=== PATIENT | male | born 1930 | race Caucasian/White ===

== ENCOUNTER → 2016-04-11 | Outpatient (CLI) | payer MEDICARE, BC ==
[~2016-04-11] MED LIST: ALBUTEROL0.09 MG/A4 IH; ATIVAN 0.50.5 MG/TAB PO; CIPRO 250MG TA250 MG PO; COLCHICINE0.6 M1 PO; COUMADIN 22.5 MG/TAB PO; COUMADIN 5MG5 MG/TAB PO; COUMADIN PO; COUMADIN1 MG PO; ENOXAPARIN40 MG/0.1 SQ; FISH OIL 1000MG1 CAP PO; FLONASE ALLERG9.9 ML NS; HCTZ/LISINOPRIL1 TA2 PO; LABETALOL HYDR200 MG PO; LASIX20 M1 PO; LEXAPRO 10MG10 MG PO; LISINOPRIL20 MG PO; LORAZEPAM0.5 M1 PO; LOSARTAN POTAS100 MG PO; LOSARTAN POTASS50 MG PO; MULTIPLE VITAMI1 TAB PO; NORCO 325 MG-51 TA1 PO; POTASSIUM CHLO20 ME4 PO; PREDNISONE10 MG PO; Patient's Own Medica PO; SODIUM BICARB PO; TRANDATE 200MG200 MG PO; TYLENOL 500MG500 MG PO; ULTRAM 50MG TAB50 MG PO; VESICARE10 MG PO; ZYLOPRIM 100MG100 MG PO
== END ==
LOC: LAB 16:54
DX: I82.813 Embolism and thrombosis of superficial veins of lower extremities, bilateral (principal); N18.2 Chronic kidney disease, stage 2 (mild); M79.601 Pain in right arm

== ENCOUNTER 2016-04-13 16:55 | Observation (INO) | payer MEDICARE, BC ==
--- NOTE | 2016-04-13 16:50 | NUR ---
PT SENT OVER FROM CLINIC AT THIS TIME A DIRECT ADMIT WITH A DIAGNOSIS OF CELLULITIS IN THE RIGHT ARM AND SEVERE PAIN AT THIS SITE, PATIENT ARRIVES VIA WHEELCHAIR, BREATHING STABLE ON ROOM AIR, RIGHT ARM IS IN SLING, C/O SEVERE PAIN IN THE RIGHT ARM FROM THE ELBOW DOWN, NOTED EXTREME EDEMA AND REDNESS IN RIGHT HAND, EDEMA EXTENDS UP THE ARM, PAIN STARTS AT THE LEVEL OF THE ELBOW AND RADIATES DOWN THE HAND, PT ALSO COMPLAINS OF PAIN IN RIGHT LOWER BACK THAT HE STATES HE HAS BEEN DEALING WITH AT HOME, COMPLEX ASSESSMENT COMPLETED, CHRONIC COLOSTOMY AND UROSTOMY PRESENT, STOMAS PINK AND MOIST, URINE IS YELLOW AND CLEAR, NO BM AT THIS TIME, REPORTS LAST BM WAS THIS MORNING, HE REPORTS HIS SUPPLIES AT HOME IS RUNNING THIN FOR HIS OSTOMIES SO HE IS GOING TO USE OUR SUPPLIES HERE DURING HIS STAY, HE CURRENTLY LIVES AT HOME ALONE WITH THE CARES OF [facility] AND FAMILY SUPPORT, IV STARTED AT THIS TIME IN LEFT UPPER ARM FOR IV ANTIBIOTICS AND PAIN CONTROL, PENDING ORDERS AT THIS TIME, LIOR BARROW APRN STATES PATIENT IS GOING TO BE ON A REGULAR DIET, KITCHEN NOTIFIED AND BRING PATIENT A SUPPER TRAY, NO FAMILY PRESENT AT THIS TIME, VSS, WILL CONTINUE ASSESSMENT AND MONITOR PATIENTS HEALTH STATUS
[~2016-04-13 16:55] MED LIST changes: -COUMADIN 22.5 MG/TAB PO; -COUMADIN 5MG5 MG/TAB PO; -COUMADIN PO; -ENOXAPARIN40 MG/0.1 SQ; -LABETALOL HYDR200 MG PO; -LORAZEPAM0.5 M1 PO; -LOSARTAN POTAS100 MG PO; -LOSARTAN POTASS50 MG PO; -NORCO 325 MG-51 TA1 PO; -POTASSIUM CHLO20 ME4 PO; -PREDNISONE10 MG PO; -Patient's Own Medica PO; -SODIUM BICARB PO; -TRANDATE 200MG200 MG PO; -ZYLOPRIM 100MG100 MG PO
[2016-04-13 17:12] VITALS: BP 169/77
[2016-04-13 17:42] VITALS: BP 169/77
[2016-04-13 18:08] VITALS: BP 169/77
[2016-04-13 18:30] VITALS: BP 169/77
--- NOTE | 2016-04-13 19:05 | NUR ---
PT REPORTS AT THIS TIME HE IS ABLE TO KNOW WHEN HE NEEDS HIS OSTOMIES TENDED TO, WELL HOW TO MANEUVER ALL OF THE SUPPLIES, ENCOURAGED TO RING CALL LIGHT AND ASK FOR STAFF ASSISTANCE WHILE HIS ARM IS STILL SO SORE, DENIES THE NEED FOR THESE CARES AT THIS TIME, ALSO REPORTS AT THIS TIME THAT AT HOME HE IS AMBULATING WITH A WALKER, HE ARRIVES WITH A CANE AND MENTIONS HE USES "BOTH" BUT DOES BETTER WITH THE WALKER, SBA UPON ASSESSMENT, STRONG GAIT WITH INTERMITTENT UNSTEADINESS, MOVES SLOW BUT EFFICIENTLY
--- NOTE | 2016-04-13 19:27 | NUR ---
PT RESTING IN BED, CALM AND STATES PAIN IS MUCH BETTER, REPORTS PAIN LEVEL HAS COME DOWN FROM 8/10 TO 5/10, HE IS MOVING HIS FINGERS WHICH HE SAYS IS AN IMPROVEMENT, BACK PAIN IS MUCH BETTER WELL, DENIES NEEDS, CALL LIGHT WITHIN REACH, ENCOURAGED TO RING CALL LIGHT FOR ANY ASSISTANCE NEEDED, NO ACUTE CHANGES OR NEW NEEDS AT THIS TIME
--- NOTE | 2016-04-13 20:32 | NUR ---
PT REPORTS AT THIS TIME THAT HE CHANGES HIS OSTOMY BAGS EVERY 3 DAYS WELL THE WAFERS, HE STATES TOMORROW IS THE DAY THAT THEY NEED CHANGED, DOES NOT WANT THEM CHANGED AT THIS TIME, BOTH SITES DRAINING APPROPRIATELY, NO REDNESS OR INAPPROPRIATE SKIN BREAKDOWN, NO IMMEDIATE CONCERNS NOTED
--- NOTE | 2016-04-13 20:35 | NUR ---
Report received from Carmen Rajan RN
--- NOTE | 2016-04-13 21:30 | NUR ---
Pt has been resting in bed, awake and a/o x 3. Denies pain. Right arm in sling for comfort. Right hand continues to be swollen. Cap refill less than 3 seconds. Radial pulse strong and regular. Skin chris. Int patent, flushes easily with normal saline. Denies pain when Int flushed.
[2016-04-13 23:16] VITALS: BP 121/52
--- NOTE | 2016-04-13 23:29 | NUR ---
Resting in bed with eyes closed, even respirations. Opens eyes when spoken too. Urostomy bag emptied. Urostomy bag and colostomy bag secured.
--- NOTE | 2016-04-14 01:17 | NUR ---
Resting in bed, eyes closed. Even none labored respirations.
[2016-04-14 03:01] VITALS: BP 143/56
--- NOTE | 2016-04-14 05:30 | NUR ---
Has been resting in bed, eyes closed, even none labored respirations. Right forearm in sling, for comfort measures. Cap refill less than 3 seconds. Skin warm. Right hand continues to be swollen. Radial pule strong. Denies pain.
[2016-04-14 06:23] VITALS: BP 129/49
--- NOTE | 2016-04-14 06:35 | NUR ---
Dr Rudd called in lab order.
--- NOTE | 2016-04-14 07:10 | NUR ---
Report given to Deepika Valentino RN
[2016-04-14] MEDS ORDERED: COUMADIN PO (07:18)
--- NOTE | 2016-04-14 07:20 | NUR ---
REPORT RECEIVED FROM PRESLEY BRANCH
--- NOTE | 2016-04-14 07:45 | NUR ---
PATIENT LYING IN BED WITH HEAD OF BED ELEVATED. SHIFT ASSESSMENT COMPLETE. PATIENT ALERT AND ORIENTED X4. DENIES ANY PAIN AT THIS TIME. PATIENT'S RIGHT HAND IN SLING. PATIENT HAS REDNESS TO RIGHT UPPER EXT. REDNESS FROM 2ND TO 5TH FINGER EXTENDS TO MIDDLE KNUCKLE. REDNESS TO 2ND FINGER THAN OTHER REDDENED. TOP OF HAND SLIGHTLY REDDENED BUT NOT RED FINGERS. SKIN TO APPROXIMATELY 2/[address] UP ARM PINK. RED AREA WARM TO TOUCH. FINGERS SWOLLEN. HAS +2 EDEMA TO RIGHT FOREARM TO ELBOW. PATIENT ABLE TO WIGGLE FINGERS IN RIGHT HAND BUT HAS LIMITED MOVEMENT DUE TO SWELLING AND PAIN, UNABLE TO FORM ROVING MARKER.PATIENT REPORTS PAIN ALL STARTED IN RIGHT ELBOW. RIGHT ELBOW SWOLLEN. HAS PINKENED AREA TO ELBOW. REPORTS THAT HE ALWAYS HAS DIFFICULTIES BREATHING WITH EXERTION. DENIES ANY CHANGE TO BREATHING RECENTLY. COLOSTOMY BAG AND UROSTOMY BAG INTACT. PATIENT'S CALL LIGHT WITHIN REACH. BED ALARM ON.
--- NOTE | 2016-04-14 08:10 | NUR ---
IN TO SEE PATIENT. THIS NURSE IN ROOM.
[2016-04-14 11:14] VITALS: BP 119/53
--- NOTE | 2016-04-14 11:45 | NUR ---
PATIENT'S SLING TO RIGHT UPPER ARM WAS REMOVED. PATIENT HAS HAD RIGHT ARM ELEVATED ON PILLOWS. SWELLING TO RIGHT FOREARM/ELBOW DOES NOT APPEAR TO BE SWOLLEN THIS MORNING. REDNESS TO RIGHT UPPER EXT OUTINED WITH MARKER. REDNESS APPEARS TO UNCHANGED FROM PREVIOUS.
[2016-04-14 15:02] VITALS: BP 146/55
--- NOTE | 2016-04-14 15:29 | NUR ---
Pt's charge nurse is concerned for pt not moving around. Dr De La Fuente is notified and new orders given for PT/OT evals. Both Herlinda Saldana OT and Marifer Castellanos PT are notified per this nurse of new orders.
--- NOTE | 2016-04-14 16:50 | NUR ---
PATIENT'S RIGHT ARM ELEVATED ON PILLOWS. PATIENT REQUESTED PRN MORPHINE 4 MG FOR PAIN IN HAND WITH MOVEMENT. REDNESS IN RIGHT FINGERS SLIGHTLY LESS RED THAN THIS MORNING BUT CONTINUES TO BE WARM TO TOUCH. MEASUREMENT FOR AREA JUST BELOW ELBOW 29 CM.
[2016-04-14 16:59] VITALS: BP 156/60
--- NOTE | 2016-04-14 17:40 | NUR ---
PATIENT SWITCHED FROM OBSERVATION TO ACUTE AT THIS TIME.
[2016-04-14 18:00] VITALS: BP 149/66
== END 2016-04-14 17:40 | disposition other institution (70) ==
LOC: MED/SURG 16:55
PROVIDERS: ADMIT Family Medicine
DX: L03.113 Cellulitis of right upper limb (principal); N18.2 Chronic kidney disease, stage 2 (mild); M1A.9XX1 Chronic gout, unspecified, with tophus (tophi); Z86.718 Personal history of other venous thrombosis and embolism; Z79.01 Long term (current) use of anticoagulants; I10 Essential (primary) hypertension; F41.9 Anxiety disorder, unspecified; F32.9 Major depressive disorder, single episode, unspecified; Z51.81 Encounter for therapeutic drug level monitoring; Z93.3 Colostomy status; Z85.51 Personal history of malignant neoplasm of bladder; Z85.46 Personal history of malignant neoplasm of prostate; Z85.118 Personal history of other malignant neoplasm of bronchus and lung; Z85.038 Personal history of other malignant neoplasm of large intestine
CPT/HCPCS: G0378; G0379; J0690; J2270; J3490; J7512

== ENCOUNTER 2016-04-14 17:40 | Inpatient (IN) | payer MEDICARE, BC ==
[~2016-04-14 17:40] MED LIST changes: +COUMADIN PO
[2016-04-14 18:35] VITALS: BP 149/66
[2016-04-14 23:00] VITALS: BP 135/66
[2016-04-15] VITALS (7 sets, daily range): BP systolic 121–159; BP diastolic 43–73
[2016-04-16 03:11] VITALS: BP 130/62
[2016-04-16 06:27] VITALS: BP 153/67
[2016-04-16 11:20] VITALS: BP 147/67
[2016-04-16 15:11] VITALS: BP 169/67
[2016-04-16 18:23] VITALS: BP 177/73
[2016-04-16 23:16] VITALS: BP 154/70
[2016-04-17 02:54] VITALS: BP 160/62
[2016-04-17 06:25] VITALS: BP 158/66
[2016-04-17 11:27] VITALS: BP 151/94
[2016-04-17 15:03] VITALS: BP 165/78
[2016-04-17 18:00] VITALS: BP 173/74
[2016-04-17 22:56] VITALS: BP 165/69
[2016-04-18 02:57] VITALS: BP 152/73
[2016-04-18 06:23] VITALS: BP 158/70
[2016-04-18 12:25] VITALS: BP 144/65
[2016-04-18] MEDS ORDERED: LOSARTAN POTASS50 MG PO (13:06)
[2016-04-18] MEDS ORDERED: TRANDATE 200MG200 MG PO (13:06)
[2016-04-18] MEDS ORDERED: SODIUM BICARB PO (13:07)
[2016-04-18] MEDS ORDERED: PREDNISONE10 MG PO (13:09)
[2016-04-18] MEDS ORDERED: ZYLOPRIM 100MG100 MG PO (13:09)
[2016-04-18] MEDS ORDERED: Patient's Own Medica PO (13:10)
== END 2016-04-18 12:59 | disposition swing bed (61) | DRG 554 ==
LOC: MED/SURG 17:40
PROVIDERS: ADMIT Family Medicine
DX: M10.9 Gout, unspecified (principal); K56.7 Ileus, unspecified; E87.2 Acidosis; M18.9 Osteoarthritis of first carpometacarpal joint, unspecified; I12.9 Hypertensive chronic kidney disease with stage 1 through stage 4 chronic kidney disease, or unspecified chronic kidney disease; N18.2 Chronic kidney disease, stage 2 (mild); R79.1 Abnormal coagulation profile; K59.00 Constipation, unspecified; F41.9 Anxiety disorder, unspecified; D64.9 Anemia, unspecified; Z93.3 Colostomy status; Z93.6 Other artificial openings of urinary tract status; Z96.0 Presence of urogenital implants; Z85.51 Personal history of malignant neoplasm of bladder; Z86.718 Personal history of other venous thrombosis and embolism; Z85.46 Personal history of malignant neoplasm of prostate; Z85.118 Personal history of other malignant neoplasm of bronchus and lung; Z85.038 Personal history of other malignant neoplasm of large intestine
CPT/HCPCS: A4397; J0690; J2550; J2920; J3490; J7030; J7512

== ENCOUNTER 2016-04-18 12:59 | Inpatient (IN) | payer MEDICARE, BC ==
[2016-04-18] MEDS ORDERED: TRANDATE 200MG200 MG PO (13:06)
[2016-04-18] MEDS ORDERED: LOSARTAN POTASS50 MG PO (13:06)
[2016-04-18] MEDS ORDERED: SODIUM BICARB PO (13:07)
[2016-04-18] MEDS ORDERED: PREDNISONE10 MG PO (13:09)
[2016-04-18] MEDS ORDERED: ZYLOPRIM 100MG100 MG PO (13:09)
[2016-04-18] MEDS ORDERED: Patient's Own Medica PO (13:10)
[2016-04-18 15:47] VITALS: BP 176/79
[2016-04-18 18:50] VITALS: BP 174/72
[2016-04-19 06:30] VITALS: BP 142/66
[2016-04-19 18:50] VITALS: BP 164/63
[2016-04-20 06:27] VITALS: BP 176/74
[2016-04-20 18:45] VITALS: BP 157/63
[2016-04-21 06:21] VITALS: BP 162/71
[2016-04-21 18:14] VITALS: BP 165/69
[2016-04-22 06:22] VITALS: BP 119/69
[2016-04-22 18:28] VITALS: BP 147/58
[2016-04-23 06:22] VITALS: BP 133/58
[2016-04-23 18:31] VITALS: BP 155/64
[2016-04-24 06:22] VITALS: BP 154/71
[2016-04-24 18:23] VITALS: BP 149/57
[2016-04-25 06:23] VITALS: BP 150/71
[2016-04-25 18:00] VITALS: BP 138/63
[2016-04-26 06:23] VITALS: BP 148/58
[2016-04-26] MEDS ORDERED: POTASSIUM CHLO20 ME4 PO (08:49)
[2016-04-26] MEDS ORDERED: LOSARTAN POTAS100 MG PO (08:49)
[2016-04-26] MEDS ORDERED: SODIUM BICARB PO (08:49)
[2016-04-26] MEDS ORDERED: PREDNISONE10 MG PO (08:49)
[2016-04-26] MEDS ORDERED: ENOXAPARIN40 MG/0.1 SQ (08:49)
[2016-04-26] MEDS ORDERED: LORAZEPAM0.5 M1 PO (08:49)
[2016-04-26] MEDS ORDERED: COUMADIN PO (08:56)
== END 2016-04-26 10:57 | disposition home health service (06) | DRG 554 ==
LOC: MED/SURG 12:59
PROVIDERS: ADMIT Family Medicine
DX: M10.9 Gout, unspecified (principal); E87.2 Acidosis; K56.7 Ileus, unspecified; I10 Essential (primary) hypertension; R79.1 Abnormal coagulation profile; E87.6 Hypokalemia; R53.81 Other malaise; E87.8 Other disorders of electrolyte and fluid balance, not elsewhere classified; F41.9 Anxiety disorder, unspecified; Z93.3 Colostomy status; Z93.6 Other artificial openings of urinary tract status; Z79.01 Long term (current) use of anticoagulants; Z86.718 Personal history of other venous thrombosis and embolism
CPT/HCPCS: A4397; A4425; J1650; J3430; J3480; J7512

== ENCOUNTER → 2016-04-28 | Outpatient (CLI) | payer MEDICARE, BC ==
[~2016-04-28] MED LIST changes: +COUMADIN 22.5 MG/TAB PO; +COUMADIN 5MG5 MG/TAB PO; +ENOXAPARIN40 MG/0.1 SQ; +LABETALOL HYDR200 MG PO; +LORAZEPAM0.5 M1 PO; +LOSARTAN POTAS100 MG PO; +LOSARTAN POTASS50 MG PO; +NORCO 325 MG-51 TA1 PO; +POTASSIUM CHLO20 ME4 PO; +PREDNISONE10 MG PO; +Patient's Own Medica PO; +SODIUM BICARB PO; +TRANDATE 200MG200 MG PO; +ZYLOPRIM 100MG100 MG PO
== END ==
LOC: LAB 11:30
DX: E87.2 Acidosis (principal); I82.813 Embolism and thrombosis of superficial veins of lower extremities, bilateral

== ENCOUNTER → 2016-05-02 | Outpatient (CLI) | payer MEDICARE, BC | LOC: LAB 13:03 | DX: I82.813 Embolism and thrombosis of superficial veins of lower extremities, bilateral (principal) ==

== ENCOUNTER → 2016-05-09 | Outpatient (CLI) | payer MEDICARE, BC | LOC: LAB 10:26 | DX: N18.3 Chronic kidney disease, stage 3 (moderate) (principal); I82.813 Embolism and thrombosis of superficial veins of lower extremities, bilateral ==

== ENCOUNTER → 2016-05-11 | Outpatient (CLI) | payer MEDICARE, BC | LOC: LAB 09:42 | DX: Z51.81 Encounter for therapeutic drug level monitoring (principal); Z79.01 Long term (current) use of anticoagulants; I82.813 Embolism and thrombosis of superficial veins of lower extremities, bilateral ==

== ENCOUNTER → 2016-05-13 | Outpatient (CLI) | payer MEDICARE, BC | LOC: LAB 11:47 | DX: M1A.0411 Idiopathic chronic gout, right hand, with tophus (tophi) (principal); M10.341 Gout due to renal impairment, right hand ==

== ENCOUNTER → 2016-05-16 | Outpatient (CLI) | payer MEDICARE, BC | LOC: RAD 13:06 | DX: M25.561 Pain in right knee (principal); R60.0 Localized edema; I10 Essential (primary) hypertension; E87.2 Acidosis; I82.813 Embolism and thrombosis of superficial veins of lower extremities, bilateral; S83.241A Other tear of medial meniscus, current injury, right knee, initial encounter; X58.XXXA Exposure to other specified factors, initial encounter ==

== ENCOUNTER → 2016-05-19 | Outpatient (CLI) | payer MEDICARE, BC | LOC: LAB 09:57 | DX: Z51.81 Encounter for therapeutic drug level monitoring (principal); Z79.01 Long term (current) use of anticoagulants; I82.813 Embolism and thrombosis of superficial veins of lower extremities, bilateral ==

== ENCOUNTER 2016-06-15 15:09 | Inpatient (IN) | payer MEDICARE, BC ==
[~2016-06-15 15:09] MED LIST changes: -COUMADIN 22.5 MG/TAB PO; -COUMADIN 5MG5 MG/TAB PO; -LABETALOL HYDR200 MG PO; -NORCO 325 MG-51 TA1 PO
[2016-06-15 15:38] VITALS: BP 135/59
[2016-06-15 15:40] VITALS: BP 135/59
[2016-06-15] MEDS ORDERED: NORCO 325 MG-51 TA1 PO (15:42)
[2016-06-15 18:12] VITALS: BP 144/59
[2016-06-15 18:13] VITALS: BP 119/57; BP 128/61
[2016-06-15 18:14] VITALS: BP 144/59
[2016-06-15 23:11] VITALS: BP 116/57
[2016-06-16] VITALS (7 sets, daily range): BP systolic 85–130; BP diastolic 35–61
[2016-06-17 03:19] VITALS: BP 122/55
[2016-06-17 06:23] VITALS: BP 110/51
[2016-06-17 11:09] VITALS: BP 114/48
[2016-06-17 14:54] VITALS: BP 156/71
[2016-06-17] MEDS ORDERED: COUMADIN 5MG5 MG/TAB PO (18:06)
[2016-06-17] MEDS ORDERED: COUMADIN 22.5 MG/TAB PO (18:06)
[2016-06-17] MEDS ORDERED: ENOXAPARIN40 MG/0.1 SQ (18:07)
[2016-06-17] MEDS ORDERED: SODIUM BICARB PO (18:08)
[2016-06-17] MEDS ORDERED: PREDNISONE10 MG PO (18:09)
[2016-06-17 18:18] VITALS: BP 108/46
[2016-06-17 23:00] VITALS: BP 100/42
[2016-06-18 02:55] VITALS: BP 112/52
[2016-06-18 06:38] VITALS: BP 91/47
[2016-06-18 11:25] VITALS: BP 129/55
[2016-06-18 15:07] VITALS: BP 125/59
== END 2016-06-18 16:30 | disposition swing bed (61) | DRG 683 ==
LOC: MED/SURG 15:09
PROVIDERS: ADMIT Family Medicine
DX: N17.9 Acute kidney failure, unspecified (principal); E87.2 Acidosis; D68.32 Hemorrhagic disorder due to extrinsic circulating anticoagulants; E86.0 Dehydration; M11.262 Other chondrocalcinosis, left knee; M11.261 Other chondrocalcinosis, right knee; R19.5 Other fecal abnormalities; D64.9 Anemia, unspecified; E87.6 Hypokalemia; R19.7 Diarrhea, unspecified; F41.9 Anxiety disorder, unspecified; F32.9 Major depressive disorder, single episode, unspecified; I12.9 Hypertensive chronic kidney disease with stage 1 through stage 4 chronic kidney disease, or unspecified chronic kidney disease; N18.3 Chronic kidney disease, stage 3 (moderate); T45.515A Adverse effect of anticoagulants, initial encounter; Z93.3 Colostomy status; Z79.01 Long term (current) use of anticoagulants; Z86.718 Personal history of other venous thrombosis and embolism; Z85.038 Personal history of other malignant neoplasm of large intestine; Z85.51 Personal history of malignant neoplasm of bladder
CPT/HCPCS: A4409; J0881; J1650; J7030; J7070; J7512

== ENCOUNTER → 2016-06-15 | Outpatient (CLI) | payer MEDICARE, BC ==
--- NOTE | 2016-06-15 13:39 | NUR ---
Dr. De La Fuente at patients bedside, he is aware of lab and EKG results, discussed plan to transfer
[2016-06-15 13:59] VITALS: BP 107/50
--- NOTE | 2016-06-15 14:01 | NUR ---
to x-ray per w/c
--- NOTE | 2016-06-15 15:08 | NUR ---
Dr. Hardy calls and states [facility] has no available beds, so for this time the patient will remain at [facility] for Acute inpatient stay. Admissions is notified
== END ==
LOC: AMSURD 12:03
DX: I73.9 Peripheral vascular disease, unspecified (principal)
CPT/HCPCS: J3430; J7030

== ENCOUNTER 2016-06-18 16:30 | Inpatient (IN) | payer MEDICARE, BC ==
[~2016-06-18 16:30] MED LIST changes: +COUMADIN 22.5 MG/TAB PO; +COUMADIN 5MG5 MG/TAB PO; +NORCO 325 MG-51 TA1 PO
[2016-06-18 16:49] VITALS: BP 125/59
[2016-06-18 18:13] VITALS: BP 129/56
[2016-06-18 19:04] VITALS: BP 129/56
[2016-06-19 06:31] VITALS: BP 116/48
[2016-06-19 18:32] VITALS: BP 144/69
[2016-06-20 06:22] VITALS: BP 128/57
[2016-06-20 18:13] VITALS: BP 159/81
[2016-06-21 06:21] VITALS: BP 125/50
[2016-06-21 18:26] VITALS: BP 160/92
[2016-06-22 06:32] VITALS: BP 125/56
[2016-06-22 17:57] VITALS: BP 161/82
[2016-06-23 06:24] VITALS: BP 121/52
[2016-06-23] MEDS ORDERED: LABETALOL HYDR200 MG PO (07:02)
[2016-06-23] MEDS ORDERED: SODIUM BICARB PO (07:02)
[2016-06-23] MEDS ORDERED: PREDNISONE10 MG PO (07:08)
== END 2016-06-23 11:08 | disposition home health service (06) | DRG 554 ==
LOC: MED/SURG 16:30
PROVIDERS: ADMIT Family Medicine
DX: M11.262 Other chondrocalcinosis, left knee (principal); M11.261 Other chondrocalcinosis, right knee; E87.2 Acidosis; E87.6 Hypokalemia; D64.9 Anemia, unspecified; I12.9 Hypertensive chronic kidney disease with stage 1 through stage 4 chronic kidney disease, or unspecified chronic kidney disease; N18.3 Chronic kidney disease, stage 3 (moderate); F41.9 Anxiety disorder, unspecified; I73.9 Peripheral vascular disease, unspecified; M51.36 Other intervertebral disc degeneration, lumbar region; J45.909 Unspecified asthma, uncomplicated; Z79.01 Long term (current) use of anticoagulants; Z93.3 Colostomy status; Z93.6 Other artificial openings of urinary tract status; Z86.718 Personal history of other venous thrombosis and embolism; Z85.51 Personal history of malignant neoplasm of bladder; Z85.038 Personal history of other malignant neoplasm of large intestine
CPT/HCPCS: A4425; J1650; J7512

== ENCOUNTER → 2016-06-24 | Outpatient (CLI) | payer MEDICARE, BC ==
[~2016-06-24] MED LIST changes: +LABETALOL HYDR200 MG PO
== END ==
LOC: LAB 12:07
DX: R42 Dizziness and giddiness (principal); Z86.718 Personal history of other venous thrombosis and embolism

== ENCOUNTER → 2016-06-27 | Outpatient (CLI) | payer MEDICARE, BC | LOC: LAB 09:35 | DX: I82.813 Embolism and thrombosis of superficial veins of lower extremities, bilateral (principal); D63.1 Anemia in chronic kidney disease; I48.91 Unspecified atrial fibrillation ==

== ENCOUNTER → 2016-06-29 | Outpatient (CLI) | payer MEDICARE, BC | LOC: LAB 09:24 | DX: Z51.81 Encounter for therapeutic drug level monitoring (principal); Z79.01 Long term (current) use of anticoagulants; I82.813 Embolism and thrombosis of superficial veins of lower extremities, bilateral; R42 Dizziness and giddiness; N18.2 Chronic kidney disease, stage 2 (mild); E87.2 Acidosis; Z85.51 Personal history of malignant neoplasm of bladder ==

== ENCOUNTER → 2016-07-05 | Outpatient (CLI) | payer MEDICARE, BC ==
[2016-06-23 06:24] VITALS: BP 121/52
== END ==
LOC: LAB 10:36
DX: N18.3 Chronic kidney disease, stage 3 (moderate) (principal); D63.1 Anemia in chronic kidney disease

== ENCOUNTER 2016-07-08 08:15 | Outpatient (RCR) | payer MEDICARE, BC | END 2016-07-22 15:25 | LOC: OPPGERO 08:15 | DX: F32.1 Major depressive disorder, single episode, moderate (principal); F41.1 Generalized anxiety disorder ==

== ENCOUNTER → 2016-07-18 | Outpatient (CLI) | payer MEDICARE, BC ==
[2016-06-23 06:24] VITALS: BP 121/52
== END ==
LOC: LAB 14:05
DX: E87.2 Acidosis (principal)

== ENCOUNTER 2016-07-25 08:06 | Outpatient (RCR) | payer MEDICARE, BC | END 2016-08-24 16:45 | LOC: OPPGERO 08:06 | DX: F32.1 Major depressive disorder, single episode, moderate (principal); F41.1 Generalized anxiety disorder ==

== ENCOUNTER → 2016-08-09 | Outpatient (CLI) | payer MEDICARE, BC | LOC: LAB 15:02 | DX: D63.1 Anemia in chronic kidney disease (principal); N18.3 Chronic kidney disease, stage 3 (moderate) ==

== ENCOUNTER 2016-08-25 10:59 | Outpatient (RCR) | payer MEDICARE, BC | END 2016-09-23 15:47 | LOC: OPPGERO 10:59 | DX: F32.1 Major depressive disorder, single episode, moderate (principal); F41.1 Generalized anxiety disorder ==

== ENCOUNTER → 2016-08-31 | Outpatient (CLI) | payer MEDICARE, BC | LOC: RAD 09:49 | DX: Z85.51 Personal history of malignant neoplasm of bladder (principal); Z73.2 Lack of relaxation and leisure; Z73.3 Stress, not elsewhere classified; K80.20 Calculus of gallbladder without cholecystitis without obstruction | CPT/HCPCS: Q9967 ==

== ENCOUNTER → 2016-09-06 | Outpatient (CLI) | payer MEDICARE, BC | LOC: LAB 15:34 | DX: N18.3 Chronic kidney disease, stage 3 (moderate) (principal); D63.1 Anemia in chronic kidney disease ==

== ENCOUNTER → 2016-09-23 | Outpatient (CLI) | payer MEDICARE, BC | LOC: LAB 10:24 | DX: R60.0 Localized edema (principal); D63.1 Anemia in chronic kidney disease; N18.3 Chronic kidney disease, stage 3 (moderate) ==

== ENCOUNTER 2016-09-26 08:24 | Outpatient (RCR) | payer MEDICARE, BC | END 2016-10-24 14:55 | disposition still patient (30) | LOC: OPPGERO 08:24 | DX: F32.1 Major depressive disorder, single episode, moderate (principal); F41.1 Generalized anxiety disorder ==

== ENCOUNTER → 2016-10-21 | Outpatient (CLI) | payer MEDICARE, BC | LOC: LAB 13:16 | DX: N17.9 Acute kidney failure, unspecified (principal); N18.3 Chronic kidney disease, stage 3 (moderate); D63.1 Anemia in chronic kidney disease ==

== ENCOUNTER 2016-10-25 08:38 | Outpatient (RCR) | payer MEDICARE, BC | END 2016-11-24 14:40 | disposition home or self-care (01) | LOC: OPPGERO 08:38 | DX: F32.1 Major depressive disorder, single episode, moderate (principal); F41.1 Generalized anxiety disorder ==

== ENCOUNTER 2016-11-25 09:17 | Outpatient (RCR) | payer MEDICARE, BC | END 2016-11-25 09:18 | disposition home or self-care (01) | LOC: OPPGERO 09:17 | DX: F32.1 Major depressive disorder, single episode, moderate (principal); F41.1 Generalized anxiety disorder ==

== ENCOUNTER → 2016-11-30 | Outpatient (CLI) | payer MEDICARE, BC | LOC: LAB 17:18 | DX: S90.822A Blister (nonthermal), left foot, initial encounter (principal); M21.612 Bunion of left foot; R82.99 Other abnormal findings in urine; D63.1 Anemia in chronic kidney disease; I12.9 Hypertensive chronic kidney disease with stage 1 through stage 4 chronic kidney disease, or unspecified chronic kidney disease; N18.3 Chronic kidney disease, stage 3 (moderate) ==

== ENCOUNTER → 2016-12-14 | Outpatient (CLI) | payer MEDICARE, BC | LOC: RAD 12:00 | DX: M25.561 Pain in right knee (principal) ==

== ENCOUNTER → 2016-12-28 | Outpatient (CLI) | payer MEDICARE, BC | LOC: LAB 14:11 | DX: N18.3 Chronic kidney disease, stage 3 (moderate) (principal); D63.1 Anemia in chronic kidney disease ==

== ENCOUNTER 2017-01-06 11:30 | Outpatient (RCR) | payer MEDICARE, BC | END 2017-01-06 12:00 | disposition home or self-care (01) | LOC: PT 11:30 | DX: F32.1 Major depressive disorder, single episode, moderate (principal); F41.1 Generalized anxiety disorder | CPT/HCPCS: G8978-GP; G8979-GP ==

== ENCOUNTER → 2017-02-01 | Outpatient (CLI) | payer MEDICARE, BC ==
[2017-02-01 11:29] LABS: EOS # 0.1 (0.04-0.40); EOS % 0.9 % (0.0-4.0); HEMATOCRIT 38.7 % (42.0-52.0); HEMOGLOBIN 12.2 g/dL (13.5-18.0); LYMPH# 1.7 (1.50-4.00); MEAN CELL VOLUME 94 fl (78-100); MEAN CORPUSCULAR HEMOGLOBIN 30 pg (27-31); MEAN CORPUSCULAR HGB CONC 32 g/dL (33-37); MEAN PLATELET VOLUME 9.2 fl (7.4-10.4); MONO # 1.1 (0.20-0.80); NEU # 6.2 (1.40-6.50); PLATELET COUNT 237 K/mm3 (130-400); RED BLOOD COUNT 4.13 M/mm3 (4.20-5.60); RED CELL DISTRIBUTION WIDTH 15.7 % (11.5-14.5); WHITE BLOOD COUNT 9.3 K/mm3 (4.8-10.8)
[2017-02-01 11:41] LABS: BUN/CREATININE RATIO 21.3 (6.0-26.0); POTASSIUM 3.6 mmol/L (3.6-5.0)
== END ==
LOC: LAB 11:09
PROVIDERS: Surgery
DX: I12.9 Hypertensive chronic kidney disease with stage 1 through stage 4 chronic kidney disease, or unspecified chronic kidney disease (principal); N18.3 Chronic kidney disease, stage 3 (moderate); R60.0 Localized edema; E87.6 Hypokalemia

== ENCOUNTER → 2017-03-02 | Outpatient (CLI) | payer MEDICARE, BC | LOC: LAB 12:19 | DX: L03.116 Cellulitis of left lower limb (principal) ==

== ENCOUNTER → 2017-03-08 | Outpatient (CLI) | payer MEDICARE, BC ==
[2017-03-08 10:58] LABS: BUN/CREATININE RATIO 30.1 (6.0-26.0); CALCIUM 8.4 mg/dL (8.4-10.2); POTASSIUM 3.7 mmol/L (3.6-5.0)
== END ==
LOC: LAB 10:33
PROVIDERS: Family Medicine
DX: L03.116 Cellulitis of left lower limb (principal); M25.561 Pain in right knee; N18.3 Chronic kidney disease, stage 3 (moderate)

== ENCOUNTER → 2017-03-22 | Outpatient (CLI) | payer MEDICARE, BC | LOC: LAB 14:49 | DX: L03.116 Cellulitis of left lower limb (principal); M25.561 Pain in right knee ==

== ENCOUNTER → 2017-05-04 | Outpatient (CLI) | payer MEDICARE, BC | LOC: LAB 16:46 | DX: J11.1 Influenza due to unidentified influenza virus with other respiratory manifestations (principal); J98.01 Acute bronchospasm ==

== ENCOUNTER → 2017-05-31 | Outpatient (CLI) | payer MEDICARE, BC ==
[2017-05-31 11:34] LABS: PROTHROMBIN TIME 17.1 SECONDS (9.0-12.0)
== END ==
LOC: LAB 10:40
PROVIDERS: Internal Medicine Nephrology
DX: I82.813 Embolism and thrombosis of superficial veins of lower extremities, bilateral (principal)

== ENCOUNTER → 2017-06-15 | Outpatient (CLI) | payer MEDICARE, BC ==
[2017-06-15 15:21] LABS: EOS % 0.2 % (0.0-4.0); HEMATOCRIT 38.6 % (42.0-52.0); HEMOGLOBIN 12.2 g/dL (13.5-18.0); LYMPH# 1.2 (1.50-4.00); MEAN CELL VOLUME 95 fl (78-100); MEAN CORPUSCULAR HEMOGLOBIN 30 pg (27-31); MEAN CORPUSCULAR HGB CONC 32 g/dL (33-37); MONO # 0.6 (0.20-0.80); NEU # 7.4 (1.40-6.50); PLATELET COUNT 239 K/mm3 (130-400); RED BLOOD COUNT 4.06 M/mm3 (4.20-5.60); RED CELL DISTRIBUTION WIDTH 17.1 % (11.5-14.5); WHITE BLOOD COUNT 9.3 K/mm3 (4.8-10.8)
[2017-06-15 15:52] LABS: ALBUMIN 3.7 g/dL (3.5-5.0); BUN/CREATININE RATIO 19.3 (6.0-26.0); POTASSIUM 4.1 mmol/L (3.6-5.0); TOTAL BILIRUBIN 0.2 mg/dL (0.2-1.3); TOTAL PROTEIN 7.2 g/dL (6.3-8.2)
[2017-06-15 16:45] LABS: ERYTHROCYTE SEDIMENTATION RATE 55 mm/hr (0-20)
== END ==
LOC: LAB 14:58
PROVIDERS: Family Medicine
DX: R19.7 Diarrhea, unspecified (principal); R10.31 Right lower quadrant pain; Z85.048 Personal history of other malignant neoplasm of rectum, rectosigmoid junction, and anus

== ENCOUNTER → 2017-06-26 | Outpatient (CLI) | payer MEDICARE, BC ==
[2017-06-26 17:18] LABS: BUN/CREATININE RATIO 16.9 (6.0-26.0); CALCIUM 8.8 mg/dL (8.4-10.2); POTASSIUM 4.3 mmol/L (3.6-5.0)
== END ==
LOC: LAB 14:48
PROVIDERS: Family Medicine
DX: N18.2 Chronic kidney disease, stage 2 (mild) (principal); R31.9 Hematuria, unspecified

== ENCOUNTER → 2017-07-11 | Outpatient (CLI) | payer MEDICARE, BC | LOC: LAB 15:05 | DX: I51.7 Cardiomegaly (principal); I70.8 Atherosclerosis of other arteries; R09.89 Other specified symptoms and signs involving the circulatory and respiratory systems; R14.0 Abdominal distension (gaseous); R19.7 Diarrhea, unspecified; Z98.890 Other specified postprocedural states ==

== ENCOUNTER → 2017-07-14 | Outpatient (CLI) | payer MEDICARE, BC ==
[2017-07-14 15:19] LABS: BUN/CREATININE RATIO 18.8 (6.0-26.0); CALCIUM 8.8 mg/dL (8.4-10.2); POTASSIUM 4.7 mmol/L (3.6-5.0)
== END ==
LOC: LAB 14:35
PROVIDERS: Family Medicine
DX: I13.0 Hypertensive heart and chronic kidney disease with heart failure and stage 1 through stage 4 chronic kidney disease, or unspecified chronic kidney disease (principal); N18.2 Chronic kidney disease, stage 2 (mild); I50.9 Heart failure, unspecified

== ENCOUNTER → 2017-07-24 | Outpatient (CLI) | payer MEDICARE, BC ==
[2017-07-24 08:42] LABS: BUN/CREATININE RATIO 17.9 (6.0-26.0); CALCIUM 8.7 mg/dL (8.4-10.2); POTASSIUM 4.3 mmol/L (3.6-5.0)
== END ==
LOC: LAB 08:18
PROVIDERS: Family Medicine
DX: R42 Dizziness and giddiness (principal)

== ENCOUNTER 2017-08-01 20:22 | Emergency (ER) | payer MEDICARE, BC ==
[~2017-08-01] VITALS: Ht 175.3 cm; Wt 90.8 kg
[2017-08-01 22:10] LABS: HEMATOCRIT 38.3 % (42.0-52.0); MEAN CELL VOLUME 95 fl (78-100); MEAN CORPUSCULAR HEMOGLOBIN 30 pg (27-31); MEAN CORPUSCULAR HGB CONC 31 g/dL (33-37); MEAN PLATELET VOLUME 9.9 fl (7.4-10.4); PLATELET COUNT 219 K/mm3 (130-400); RED BLOOD COUNT 4.02 M/mm3 (4.20-5.60); RED CELL DISTRIBUTION WIDTH 15.4 % (11.5-14.5); WHITE BLOOD COUNT 10.8 K/mm3 (4.8-10.8)
[2017-08-01 22:12] LABS: ALBUMIN 3.7 g/dL (3.5-5.0); TOTAL BILIRUBIN 0.4 mg/dL (0.2-1.3); TOTAL PROTEIN 7.3 g/dL (6.3-8.2)
[2017-08-01 22:38] LABS: PH-URINE 6.5 (5.0 - 8.0); URINE APPEARANCE CLOUDY; URINE BILIRUBIN NEGATIVE (NEGATIVE); URINE BLOOD 50 ery/uL (NEGATIVE); URINE COLOR YELLOW; URINE GLUCOSE NEGATIVE (NEGATIVE); URINE KETONE NEGATIVE (NEGATIVE); URINE LEUKOCYTE ESTERASE 2+ (NEGATIVE); URINE NITRATE POSITIVE (NEGATIVE); URINE PROTEIN(semi-quant) 1+ mg/dL (NEGATIVE); URINE UROBILINOGEN NORMAL (NORMAL); URINE WBC >50 /hpf (0-3)
[2017-08-01 22:39] LABS: BAND 2 % (0-10); LYMPHOCYTE 12 % (20-51); MONOCYTE 6 % (3-10); NEUTROPHILS 79 % (42-75)
[2017-08-01 23:07] LABS: PROTHROMBIN TIME 15.1 SECONDS (9.0-12.0)
[2017-08-01 23:16] LABS: D-DIMER 0.43 mg/L FEU (0.15-0.50)
[2017-08-01 23:27] LABS: ERYTHROCYTE SEDIMENTATION RATE 75 mm/hr (0-20)
[2017-08-02 00:25] VITALS: BP 123/63
[2017-08-02] MEDS ORDERED: ATORVASTATIN CA40 MG PO (01:35)
[2017-08-02] MEDS ORDERED: ENOXAPARIN40 MG/0.1 SQ (01:36)
[2017-08-02] MEDS ORDERED: ESCITALOPRAM10 MG PO (01:37)
[2017-08-02] MEDS ORDERED: FUROSEMIDE20 MG PO (01:38)
[2017-08-02] MEDS ORDERED: LASIX40 M1 PO (01:39)
[2017-08-02] MEDS ORDERED: POTASSIUM CHLO20 ME4 PO (01:40)
[2017-08-02] MEDS ORDERED: WARFARIN SODIUM4 MG PO (01:42)
[2017-08-02] MEDS ORDERED: WARFARIN SOD2 MG PO (01:42)
[2017-08-02] MEDS ORDERED: PREDNISONE 5MG5 MG PO (01:43)
[2017-08-02] MEDS ORDERED: TRAMADOL 50 MG TAB PO (01:46)
== END 2017-08-02 00:25 | disposition other institution (70) ==
LOC: ED 20:22
PROVIDERS: Nurse Practitioner Family
DX: J44.1 Chronic obstructive pulmonary disease with (acute) exacerbation (principal); I12.9 Hypertensive chronic kidney disease with stage 1 through stage 4 chronic kidney disease, or unspecified chronic kidney disease; N18.3 Chronic kidney disease, stage 3 (moderate); N39.0 Urinary tract infection, site not specified; Z85.118 Personal history of other malignant neoplasm of bronchus and lung; Z90.2 Acquired absence of lung [part of]; Z86.718 Personal history of other venous thrombosis and embolism; Z79.01 Long term (current) use of anticoagulants; Z87.891 Personal history of nicotine dependence; Z85.038 Personal history of other malignant neoplasm of large intestine; Z85.46 Personal history of malignant neoplasm of prostate; Z85.51 Personal history of malignant neoplasm of bladder; Z93.3 Colostomy status; Z93.50 Unspecified cystostomy status
CPT/HCPCS: J0696; J7030

== ENCOUNTER 2017-08-07 12:39 | Inpatient (IN) | payer MEDICARE, BC ==
[~2017-08-07] VITALS: Ht 175.3 cm; Wt 89.0 kg
[~2017-08-07 12:39] MED LIST changes: +ATORVASTATIN CA40 MG PO; +ESCITALOPRAM10 MG PO; +FUROSEMIDE20 MG PO; +LASIX40 M1 PO; +PREDNISONE 5MG5 MG PO; +TRAMADOL 50 MG TAB PO; +WARFARIN SOD2 MG PO; +WARFARIN SODIUM4 MG PO
[2017-08-07] MEDS ORDERED: CEFDINIR300 MG PO (12:57)
[2017-08-07] MEDS ORDERED: ATROVENT I0.2 MG/1 M IH (12:58)
[2017-08-07] MEDS ORDERED: CARDIZEM CD120 M1 PO (13:01)
[2017-08-07 17:20] VITALS: BP 160/80
[2017-08-07 18:20] VITALS: BP 159/84
--- NOTE | 2017-08-07 21:54 | NUR ---
Report received from Shanice Roldan RN. at shift change. Patient transfered to swingbed today. Call placed to Dr. De La Fuente to clarify medication orders. Orders clarified. Down to patients room for assessment and medication pass. Patient sitting up in chair. A/O x4. Denies pain. Denies shortness of breath at reast. Lungs coarse but improved from previous night. Denies cough. States no BM in bag x2 days. Wanting to talk to Elaine Singh tomorrow regarding laxatives for colostomy. Has 2+ edema to RLE 1+ edema to LLE. Takes schedule HS medications without difficulty. Uses I.S. pulls [id number] ML x10.
--- NOTE | 2017-08-08 05:47 | NUR ---
Patient has rested quietly all shift. No reports of pain. Calls to have urostomy bag emptied when full.
[2017-08-08 06:17] LABS: BUN/CREATININE RATIO 43.7 (6.0-26.0); CALCIUM 7.8 mg/dL (8.4-10.2)
[2017-08-08 06:24] VITALS: BP 145/87
[2017-08-08 06:36] LABS: POTASSIUM 2.9 mmol/L (3.6-5.0)
--- NOTE | 2017-08-08 06:45 | NUR ---
Dr. De La Fuente called with critical Potassium 2.9. Orders received.
--- NOTE | 2017-08-08 07:44 | NUR ---
Report to Jazzmine SHERWOOD
[2017-08-08 18:23] VITALS: BP 176/80
--- NOTE | 2017-08-08 19:05 | NUR ---
Bed side report received from Jazzmine Roblero RN. Pt awake and a/o x 3. Denies having any needs. Denies pain or SOB.
--- NOTE | 2017-08-08 20:35 | NUR ---
Continues to rest in bed. Bed alarm on. SCD's on. Sa02 93% on room air. Pulse 61, respirations 20. Reviewed options for evening snack. Pt agreed to evening snack. Denies having any pain or SOB.
--- NOTE | 2017-08-08 20:36 | NUR ---
Urostomy and colostomy bag intact. Skin CDI
--- NOTE | 2017-08-08 21:00 | NUR ---
Pt requested evening snack of cranberry juice and vanilla pudding. Snack given.
--- NOTE | 2017-08-09 06:00 | NUR ---
Q hourly checks done. Bed alarm set. Colostomy and urostomy bag intact, skin intact and no redness. Has been resting in bed with eyes closed even respirations. At 0500 Pt opened eyes when spoken too. Denies having any pain or needs.
[2017-08-09 06:12] LABS: BUN/CREATININE RATIO 41.5 (6.0-26.0); CALCIUM 7.7 mg/dL (8.4-10.2); CARBON DIOXIDE 22 mmol/L (22-30); GLUCOSE 139 mg/dL (75-110); POTASSIUM 3.6 mmol/L (3.6-5.0); SODIUM 144 mmol/L (137-145)
[2017-08-09 06:20] VITALS: BP 119/71
[2017-08-09 06:26] VITALS: BP 174/92
--- NOTE | 2017-08-09 07:10 | NUR ---
Bedside report given to Jazzmine Roblero RN
[2017-08-09 07:40] LABS: PROTHROMBIN TIME 34.4 SECONDS (9.0-12.0)
[2017-08-09 18:14] VITALS: BP 175/79
[2017-08-10 06:32] VITALS: BP 183/98
--- NOTE | 2017-08-10 09:50 | NUR ---
UROSTOMY WAFER LEAKING URINE. WAFER REMOVED; 1CM SKIN TEAR OCCURS. SKIN AROUND STOMA AND SKIN TEAR CLEANSED WITH SOAP AND WATER, THEN PATTED DRY. SKIN PROTECTANT APPLIED TO SKIN AROUND STOMA AND AT SKIN TEAR. STERI STRIP PLACED TO SKIN TEAR AND THEN WAFER FITTED PER PATIENT INSTRUCTIONS.
[2017-08-10 18:43] VITALS: BP 164/75
--- NOTE | 2017-08-10 19:15 | NUR ---
Bedside shift report received from Mary SHERWOOD. Patient sittin up in chair. A/O x4. Denies pain. Had large BM at shift change.
--- NOTE | 2017-08-10 20:15 | NUR ---
Assessment completed. Denies pain. Takes 100 Mg of Tramadol with HS medications for chronic back pain prevention. Denies shortness of breath. States breathing is better, no cough. States says he will probably go home Monday or Monday. Using I.S. every hour. Pulls [id number] x10 reps. Takes scheduled medications without difficulty.
--- NOTE | 2017-08-11 05:14 | NUR ---
Resting well all shift. Calls to have urostomy bag emptied PRN.
[2017-08-11 06:08] LABS: HEMOGLOBIN 12.8 g/dL (13.5-18.0); MEAN PLATELET VOLUME 9.6 fl (7.4-10.4); RED BLOOD COUNT 4.43 M/mm3 (4.20-5.60); RED CELL DISTRIBUTION WIDTH 15.9 % (11.5-14.5); WHITE BLOOD COUNT 15.3 K/mm3 (4.8-10.8)
[2017-08-11 06:26] LABS: BUN/CREATININE RATIO 36.3 (6.0-26.0); CALCIUM 7.9 mg/dL (8.4-10.2); POTASSIUM 4.2 mmol/L (3.6-5.0)
[2017-08-11 06:39] VITALS: BP 142/79
[2017-08-11 06:40] LABS: PROTHROMBIN TIME 46.1 SECONDS (9.0-12.0)
--- NOTE | 2017-08-11 07:40 | NUR ---
BEDSIDE REPORT RECEIVED FROM JUDI SALEEM LPN
--- NOTE | 2017-08-11 07:50 | NUR ---
Report to Deepika SHERWOOD.
--- NOTE | 2017-08-11 09:39 | NUR ---
called [facility], spoke with 's nurse to ask if patient can do physical therapy and regular activity with patient's INR 4.5. per patient okay to normal activity and participate in therapy as long as fall precautions are in place.
--- NOTE | 2017-08-11 14:25 | NUR ---
vikas PT reports that during therapy patient got really dizzy and almost fell. reports that patient became kind of disoriented and required instruction and queing to sit. patient's blood pressure after lying down was 158/82 heart rate 56.
[2017-08-11 14:42] VITALS: BP 168/80
--- NOTE | 2017-08-11 14:45 | NUR ---
orthostatic vital signs obtained. laying heart rate 57 blood pressure 168/80. sitting heart rate 58 blood pressure 114/71. standing heart rate 61 blood pressure 113/57. patient reports that he felt "a little dizzy" patient reports that in the past he has had issues with getting dizzy with position changes and during activity but that "this was the worse it's ever been. i think if vikas had not of been with me i definitely would have fallen."
--- NOTE | 2017-08-11 15:15 | NUR ---
notified that patient became dizzy and almost fell with therapy. orthostatic vital signs shown to . instructed that fluids are pushed aggressively.
[2017-08-11 18:00] VITALS: BP 158/74
--- NOTE | 2017-08-11 19:00 | NUR ---
REPORT RECEIVED FROM GRACIELA Perkins RN.
--- NOTE | 2017-08-11 19:20 | NUR ---
BEDSIDE REPORT GIVEN TO PRESLEY SANDERSON
--- NOTE | 2017-08-12 00:47 | NUR ---
PATIENT CONTINUES TO REST QUIETLY IN BED AFTER GOING TO BED LATE, DUE TO WATCHING THE [employer] GAME FINISH. PATIENT DOES NOT APPEAR TO BE IN ANY OBVIOUS DISTRESS AT THIS TIME. PATIENT IS PLEASANT, AND NOTIFIES STAFF APPROPRIATELY WHEN HIS UROSTOMY NEEDS EMPTIED. FOR MONITORING PURPOSES, THE COLOSTOMY IS CHECKED AT EACH UROSTOMY CONTENTS EMPTYING. PATIENT DENIES HAVING ANY PAIN. PATIENT DENIES HAVING ANY COMPLAINTS OR REQUESTS. PATIENT CHANGES HIS POSITION IN BED INDEPENDENTLY THROUGHOUT THE NIGHT. PATIENT CHANGES BED ADJUSTMENTS INDEPENDENTLY. IV REMAINS INTACT, PATENT AND SALINE LOCKED. BED RAILS UP X2. BED ALARM ARMED AT ALL TIMES. CALL LIGHT WITHIN REACH. CLOSE MONITORING AND HOURLY ROUNDING CONTINUE.
[2017-08-12 05:46] VITALS: BP 158/101
--- NOTE | 2017-08-12 07:02 | NUR ---
REPORT GIVEN TO GRACIELA Perkins RN.
--- NOTE | 2017-08-12 09:32 | NUR ---
SITTING UP IN CHAIR WATCHING NEWS. PLEASANT AND TALKATIVE. HE STATES "I'VE DONE ALL MY EXERCISES ALREADY THIS MORNING."
[2017-08-12 18:23] VITALS: BP 141/72
--- NOTE | 2017-08-12 19:30 | NUR ---
Report received from Deepika May RN. Pt resting in recliner, chair alarm set. Denies having any pain. Call light in reach of pt. Pt watching TV. Offered evening snack. Pt declined, given prune juice per pt request.
--- NOTE | 2017-08-13 05:21 | NUR ---
At 0330 Up to bathroom with one assist. Used walker, gait belt and supervisor toy assembly socks on. Gait steady. Pt emptied own urostomy bag, 350mls of yellow urine noted. Changed out own colostomy bag, approx 500mls of loose greenish color stool. Pt did owm colostomy care. Denied having any pain, needs or concerns. Did own lonnie care. Small amount of blood noted when pt cleaned himself. He stated that he has blood coming from his penis "for sometime now." "every since I had my surgery." He states his urologist know.
[2017-08-13 06:08] VITALS: BP 175/82
--- NOTE | 2017-08-13 06:30 | NUR ---
BEDSIDE REPORT RECEIVED FROM PRESLEY BRANCH
--- NOTE | 2017-08-13 06:38 | NUR ---
BEDSIDE REPORT RECEIVED FROM PRESLEY BRANCH
[2017-08-13 18:20] VITALS: BP 136/61
[2017-08-14 06:21] VITALS: BP 154/64
--- NOTE | 2017-08-14 07:20 | NUR ---
BEDSIDE REPORT RECEIVED FROM Jamar LANTIGUA RN
[2017-08-14 07:42] LABS: HEMATOCRIT 37.2 % (42.0-52.0); HEMOGLOBIN 12.3 g/dL (13.5-18.0); MEAN CELL VOLUME 91 fl (78-100); MEAN CORPUSCULAR HEMOGLOBIN 30 pg (27-31); MEAN CORPUSCULAR HGB CONC 33 g/dL (33-37); MEAN PLATELET VOLUME 10.1 fl (7.4-10.4); PLATELET COUNT 170 K/mm3 (130-400); RED BLOOD COUNT 4.11 M/mm3 (4.20-5.60); RED CELL DISTRIBUTION WIDTH 15.9 % (11.5-14.5)
[2017-08-14 07:57] LABS: PROTHROMBIN TIME 25.1 SECONDS (9.0-12.0)
[2017-08-14 07:59] LABS: BUN/CREATININE RATIO 32.1 (6.0-26.0); CALCIUM 7.9 mg/dL (8.4-10.2); POTASSIUM 3.8 mmol/L (3.6-5.0)
[2017-08-14 08:08] LABS: LYMPHOCYTE 9 % (20-51); NEUTROPHILS 86 % (42-75)
[2017-08-14 08:09] LABS: MONOCYTE 5 % (3-10)
--- NOTE | 2017-08-14 10:30 | NUR ---
patient's ostomy wafers and bags changed out at this time by forensic scientist's. this nurse in room to look at stomas and skin surrounding stomas. noted both stoma sites are a beefy red color. appear to be healthy stomas. skin surrounding colostomy site intact without any open areas or irritation. approximately 1 in above urostomy stoma to the right there is a skin tear that is not new. there is a steri strip in place and another that was coming off after wafer removal.area is covered with approximately 1cm x 1.5cm black scab that appears to be dried up blood. soaked area with warm wash cloth and cleaned off most of dried blood. photo taken after patient consented to this nurse taking picture of skin tear to show when he comes over to see the patient. more steri strips applied to area after it was cleaned with sterile saline and after benzoin was applied. forensic scientist's finish rest of colostomy care.
--- NOTE | 2017-08-14 14:02 | NUR ---
IN WITH PATIENT AT THIS TIME. THIS NURSE AT BEDSIDE. SHOWN PICTURE OF PATIENT'S SKIN TEAR TO SKIN APPROXIMATELY 1 INCH ABOVE PATIENT'S UROSTOMY SITE.
--- NOTE | 2017-08-14 14:30 | NUR ---
CALLED EARLE NOVA APRN AND OSTOMY CARE NURSE [phone] ABOUT COMING TO LOOK AT SKIN TEAR THAT IS TO AREA THAT WILL BE UNDER UROSTOMY WAFER AND RECOMMEND WOUND CARE INSTRUCTIONS. PLAN IS FOR HER TO COME SEE PATIENT ON MONDAY. WILL CALL HOSPITAL ON MONDAY MORNING TO NOTIFY WHAT TIME SHE IS COMING.
[2017-08-14 15:20] VITALS: BP 146/67
--- NOTE | 2017-08-14 15:22 | NUR ---
1510-this nurse in patient's room answering call light. upon entering room patient sitting up in recliner with adrian from physical therapy in room. adrian reports that when patient stood up from recliner he complained of dizziness and become unresponsive while standing and was disoriented was instructed to sit down and asked if he was okay, patient didn't respond. assisted to sitting in recliner. by the time this nurse got into room which was within a minute of call light being pushed patient responsive and able to correctly follow direction. conversation appropriate. patient's blood pressure 131/60, heart rate 56, sp02 97%. this nurse asked patient what happened reports that he felt dizzy. denies any other symptoms at time. patient states "i heard what you said" reports that he remembers what adrian said to him at the time and what questions she asked him. is able to correctly recall what she said. when asked why he didn't answer when she spoke to him patient states "i didn't know what to say" 1516-orthostatic vital signs obtained. lying bp 146/67 heart rate 61 sp02 99%. sitting bp 131/59 heart rate 59 sp02 97%. standing bp 85/49 heart rate 65 sp02 95%. patient reports feeling "a little dizzy" remains responsive throughout orthos.assisted patient back to recliner. 1522- blood pressure after sitting back down 134/65 heart rate 62 sp02 98%. patient reports feeling fine after resting in chair.
--- NOTE | 2017-08-14 15:40 | NUR ---
notified of incident patient had while working with therapy. shown orthostatic vital signs. changes made to patient's labetolol dosing. per no need to do scheduled orthostatic vital signs, only do them if patient becomes symptomatic.
[2017-08-14 18:00] VITALS: BP 138/61
--- NOTE | 2017-08-14 18:30 | NUR ---
this nurse in talking with patient about 's new orders and updated plan. patient reported to this nurse that about 1 year ago put him on a blood pressure medication that he ended up stopping and changing him to cardizem due to it causing him to get dizzy. patient unsure of the name of the medication but reports that he thinks it might be what he's on now or something similar to it. patient states "when this happens it feels just like the way i felt when i was taking that medicine that he had to stop because it was making me so dizzy and shaky and that's when he started me on that medication they just stopped last week" will pass along to oncoming nurse what patient reported to tell .
--- NOTE | 2017-08-14 19:15 | NUR ---
1909 Report received from Deepika May RN. Pt resting in recliner with feet elevated. Awake and a/o x 3. Denies having any pain or needs. Texting on cell phone and TV on.
--- NOTE | 2017-08-14 19:30 | NUR ---
bedside report given to chuy lay
--- NOTE | 2017-08-15 03:30 | NUR ---
Awake and a/o x 3. Denied having any pain. Urostomy bag drained. Colostomy bag burped. Bed alarm set. Call light with in reach of patient.
[2017-08-15 05:55] VITALS: BP 158/73
--- NOTE | 2017-08-15 07:00 | NUR ---
Report given to Mary Seals RN
[2017-08-15 09:30] VITALS: BP 133/58
--- NOTE | 2017-08-15 09:30 | NUR ---
OT at pt bedside to work with pt. Upon having him stand, pt becomes dizzy and has to sit down. Upon checking orthos, it is noted that they are positive and pt is symptomatic. Pt reports that symptoms resolve quickly if he stands and waits.
[2017-08-15 09:32] VITALS: BP 111/59
[2017-08-15 18:14] VITALS: BP 136/64
--- NOTE | 2017-08-15 19:20 | NUR ---
Report received from Mary Seals RN. PT sitting up in recliner with feet elevated. Awake and a/o x 3, tv on and pt reading tablet and news paper. Denies having any needs or concerns. Denies pain. Colostomy and urostomy bag intact. Urine yellow and stool thacker to brown. Pt requesting to walk when SHINGLES ROOFER HELPER is available.
--- NOTE | 2017-08-15 19:25 | NUR ---
Chair alarm set. Call light with in reach of patient.
--- NOTE | 2017-08-15 23:02 | NUR ---
2229 Q hourly checks done. Bed alarm set, call light with in reach of patient. Resting in bed, with eyes closed and even respiration. Pt ambulated around 2029 this evening. Gait steady, denied having any dizziness or light headedness. Pt given ultram 100mg per pt request.
--- NOTE | 2017-08-15 23:18 | NUR ---
Report given to Damaris Alvarado LPN
--- NOTE | 2017-08-16 00:13 | NUR ---
Report received from Slade SHERWOOD. Patient rests in bed with eyes closed. No signs of pain or distress. Bed alarm on. Call light in reach. SCD's on BLE.
--- NOTE | 2017-08-16 04:50 | NUR ---
Patient has been resting quietly all night with no reports of pain or dizziness. Call staff to have urostomy bag emptied. Rests with bed alarm on. Call light in reach.
[2017-08-16 06:21] VITALS: BP 127/65
--- NOTE | 2017-08-16 07:23 | NUR ---
Report to Keren SHERWOOD.
--- NOTE | 2017-08-16 08:50 | NUR ---
SITTING IN CHAIR. PLEASANT AND TALKATIVE. DENIES PAIN. REPORTS A DRY COUGH EVERY NOW AND THEN. FINE CRACKLES NOTED TO RT LOW LUNG. RESP EVEN AND UNLABORED. CALL LIGHT IN REACH TO RT SIDE OF CHAIR. UROSTOMY AND COLOSTOMY INTACT TO ABD.
--- NOTE | 2017-08-16 08:53 | NUR ---
SERGIO JOHNSON AT BEDSIDE WITH PATIENT TO INVESTIGATE SKIN TEAR UNDER UROSTOMY WAFER.
--- NOTE | 2017-08-16 09:34 | NUR ---
SERGIO JOHNSON CHANGED UROSTOMY WAFER. SHE HAS NO NEW ORDERS AT THIS TIME. DOES MENTION THAT SHE MADE SOME CHANGES TO THE RX HE GETS, BUT NOTHING HAS CHANGED REGARDING STOMA CARE. STERI STRIPS X2 TO SKIN TEAR UNDER UROSTOMY REMOVED. SERGIO JOHNSON NOTES THAT IT LOOKED FINE AND WERE NO LONGER NEEDED.
[2017-08-16 18:20] VITALS: BP 149/82
--- NOTE | 2017-08-16 20:30 | NUR ---
Report received from Keren SHERWOOD. Patient sitting in chair. A/O x4. Denies pain or shortness of breath. Assessment completed. Lungs CTA. Takes scheduled HS medications and PRN Ultram for chronic back pain. Up to BR to empty urostomy. 450 ML of clear yellow urine. Ambulates in underwood with ACCOUNTS PAYABLE SUPERVISOR. Gait steady with walker. Tolerated well. Assisted back to chair. Denies wants or needs.
--- NOTE | 2017-08-17 01:49 | NUR ---
Rests with eyes closed. No signs of pain or distress. Bed alarm on. Call light in reach.
--- NOTE | 2017-08-17 04:26 | NUR ---
Resting well. Calls to have urostomy bag emptied PRN.
[2017-08-17 05:25] VITALS: BP 151/72
[2017-08-17 06:23] LABS: PROTHROMBIN TIME 19.4 SECONDS (9.0-12.0)
[2017-08-17 06:26] LABS: BUN/CREATININE RATIO 33.6 (6.0-26.0); CALCIUM 7.7 mg/dL (8.4-10.2); POTASSIUM 3.4 mmol/L (3.6-5.0)
--- NOTE | 2017-08-17 07:46 | NUR ---
Rested well all shift. No complaints of pain or needs. Report to Ana SHERWOOD.
[2017-08-17] MEDS ORDERED: DOCUSATE SOD100 MG PO (07:56)
[2017-08-17] MEDS ORDERED: ATROVENT I0.2 MG/1 M IH (07:56)
[2017-08-17] MEDS ORDERED: PEG 335017 GM/Dose PO (07:56)
[2017-08-17] MEDS ORDERED: LABETALOL HCL100 MG PO (07:56)
[2017-08-17] MEDS ORDERED: PREDNISONE20 M1 PO (07:56)
--- NOTE | 2017-08-17 12:31 | NUR ---
Dr. De La Fuente at bedside.
[2017-08-17 13:32] VITALS: BP 125/57
--- NOTE | 2017-08-17 14:30 | NUR ---
Patient alert and oriented. Denies pain. Denies dizziness or shortnesss or breath. Urostomy and colostomy bags emptied independently by patient. Patient discharged to [facility]. Discharge instructions provided. Patient verbalizes understanding and denies questions. Report called to Cristino at [facility]. Friend here to transport patient. Ambulatory out of facility to [facility] without incident. Steady gait noted with use of walker.
== END 2017-08-17 14:30 | disposition home health service (06) | DRG 948 ==
LOC: MED/SURG 12:39
PROVIDERS: ADMIT Family Medicine
DX: R53.81 Other malaise (principal); J44.1 Chronic obstructive pulmonary disease with (acute) exacerbation; I12.9 Hypertensive chronic kidney disease with stage 1 through stage 4 chronic kidney disease, or unspecified chronic kidney disease; N18.9 Chronic kidney disease, unspecified; E87.6 Hypokalemia; Z86.718 Personal history of other venous thrombosis and embolism; Z93.3 Colostomy status; K59.00 Constipation, unspecified; Z79.01 Long term (current) use of anticoagulants; Z85.51 Personal history of malignant neoplasm of bladder; Z87.891 Personal history of nicotine dependence
CPT/HCPCS: A4409; A4425; J3480; J7512

== ENCOUNTER → 2017-08-24 | Outpatient (CLI) | payer MEDICARE, BC ==
[2017-08-17 13:32] VITALS: BP 125/57
[~2017-08-24] MED LIST changes: +ATROVENT I0.2 MG/1 M IH; +CARDIZEM CD120 M1 PO; +CEFDINIR300 MG PO; +DOCUSATE SOD100 MG PO; +LABETALOL HCL100 MG PO; +PEG 335017 GM/Dose PO; +PREDNISONE20 M1 PO
[2017-08-24 09:26] LABS: PROTHROMBIN TIME 17.3 SECONDS (9.0-12.0)
[2017-08-24 09:36] LABS: BUN/CREATININE RATIO 16.9 (6.0-26.0)
== END ==
LOC: LAB 08:52
PROVIDERS: Family Medicine
DX: I10 Essential (primary) hypertension (principal); I82.813 Embolism and thrombosis of superficial veins of lower extremities, bilateral

== ENCOUNTER → 2017-08-30 | Outpatient (CLI) | payer MEDICARE, BC ==
[2017-08-17 13:32] VITALS: BP 125/57
[2017-08-30 11:23] LABS: PROTHROMBIN TIME 22.7 SECONDS (9.0-12.0)
[2017-08-30 11:24] LABS: BUN/CREATININE RATIO 13.7 (6.0-26.0); CALCIUM 8.6 mg/dL (8.4-10.2); POTASSIUM 4.2 mmol/L (3.6-5.0)
== END ==
LOC: LAB 10:58
PROVIDERS: Family Medicine
DX: I10 Essential (primary) hypertension (principal); I82.509 Chronic embolism and thrombosis of unspecified deep veins of unspecified lower extremity

== ENCOUNTER → 2017-09-14 | Outpatient (CLI) | payer MEDICARE, BC ==
[2017-08-17 13:32] VITALS: BP 125/57
[2017-09-14 13:43] LABS: HEMOGLOBIN 11.8 g/dL (13.5-18.0); MEAN CELL VOLUME 95 fl (78-100); MEAN CORPUSCULAR HEMOGLOBIN 29 pg (27-31); MEAN CORPUSCULAR HGB CONC 31 g/dL (33-37); MEAN PLATELET VOLUME 9.3 fl (7.4-10.4); PLATELET COUNT 239 K/mm3 (130-400); RED BLOOD COUNT 4.01 M/mm3 (4.20-5.60); RED CELL DISTRIBUTION WIDTH 16.5 % (11.5-14.5); WHITE BLOOD COUNT 10.8 K/mm3 (4.8-10.8)
[2017-09-14 14:23] LABS: BUN/CREATININE RATIO 17.1 (6.0-26.0); CALCIUM 8.3 mg/dL (8.4-10.2); POTASSIUM 4.2 mmol/L (3.6-5.0)
[2017-09-14 14:55] LABS: URINE APPEARANCE CLOUDY; URINE COLOR YELLOW; URINE GLUCOSE NEGATIVE (NEGATIVE); URINE PROTEIN(semi-quant) 1+ mg/dL (NEGATIVE)
[2017-09-14 14:56] LABS: URINE BILIRUBIN NEGATIVE (NEGATIVE); URINE BLOOD 50 ery/uL (NEGATIVE); URINE KETONE TR (NEGATIVE); URINE LEUKOCYTE ESTERASE 2+ (NEGATIVE); URINE NITRATE NEGATIVE (NEGATIVE); URINE UROBILINOGEN NORMAL (NORMAL); URINE WBC >50 /hpf (0-3)
[2017-09-14 14:57] LABS: ERYTHROCYTE SEDIMENTATION RATE 80 mm/hr (0-20)
[2017-09-14 14:58] LABS: LYMPHOCYTE 12 % (20-51); MONOCYTE 3 % (3-10); NEUTROPHILS 85 % (42-75)
== END ==
LOC: LAB 12:26
PROVIDERS: Family Medicine
DX: M1A.9XX0 Chronic gout, unspecified, without tophus (tophi) (principal); R50.9 Fever, unspecified; R60.0 Localized edema; Z85.51 Personal history of malignant neoplasm of bladder

== ENCOUNTER → 2017-09-28 | Outpatient (CLI) | payer MEDICARE, BC ==
[2017-09-28 13:04] LABS: BUN/CREATININE RATIO 19.3 (6.0-26.0); CALCIUM 8.9 mg/dL (8.4-10.2); POTASSIUM 3.6 mmol/L (3.6-5.0)
== END ==
LOC: LAB 07:24
PROVIDERS: Internal Medicine Nephrology
DX: N18.3 Chronic kidney disease, stage 3 (moderate) (principal)

== ENCOUNTER → 2017-10-27 | Outpatient (CLI) | payer MEDICARE, BC | LOC: RAD 10:11 | DX: M43.17 Spondylolisthesis, lumbosacral region (principal); M51.36 Other intervertebral disc degeneration, lumbar region ==

== ENCOUNTER → 2017-11-24 | Outpatient (CLI) | payer MEDICARE, BC ==
[2017-11-24 10:00] LABS: CALCIUM 8.9 mg/dL (8.4-10.2)
[2017-11-24 10:14] LABS: POTASSIUM 3.6 mmol/L (3.6-5.0)
== END ==
LOC: LAB 09:17
PROVIDERS: Internal Medicine Nephrology
DX: N18.3 Chronic kidney disease, stage 3 (moderate) (principal)

== ENCOUNTER 2017-12-06 17:04 | Emergency (ER) | payer MEDICARE, BC ==
[~2017-12-06] VITALS: Wt 92.7 kg
[~2017-12-06 17:04] MED LIST changes: +CENTRUM SILVER1 EACH PO; -LASIX40 M1 PO; -MULTIPLE VITAMI1 TAB PO
[2017-12-06 17:47] LABS: HEMATOCRIT 33.7 % (42.0-52.0); HEMOGLOBIN 10.6 g/dL (13.5-18.0); MEAN CELL VOLUME 90 fl (78-100); MEAN CORPUSCULAR HEMOGLOBIN 28 pg (27-31); MEAN CORPUSCULAR HGB CONC 32 g/dL (33-37); MEAN PLATELET VOLUME 9.3 fl (7.4-10.4); PLATELET COUNT 227 K/mm3 (130-400); RED BLOOD COUNT 3.74 M/mm3 (4.20-5.60); RED CELL DISTRIBUTION WIDTH 15.7 % (11.5-14.5); WHITE BLOOD COUNT 11.4 K/mm3 (4.8-10.8)
[2017-12-06 17:58] LABS: ALBUMIN 3.4 g/dL (3.5-5.0); CALCIUM 8.7 mg/dL (8.4-10.2); POTASSIUM 4.1 mmol/L (3.6-5.0); TOTAL BILIRUBIN 0.4 mg/dL (0.2-1.3); TOTAL PROTEIN 6.5 g/dL (6.3-8.2)
[2017-12-06 18:05] LABS: LYMPHOCYTE 7 % (20-51); MONOCYTE 7 % (3-10); NEUTROPHILS 86 % (42-75)
[2017-12-06] MEDS ORDERED: ALPHAGAN P 5 ML5 M1 OS (18:27)
[2017-12-06] MEDS ORDERED: BACLOFEN5 MG PO (18:28)
[2017-12-06] MEDS ORDERED: FLUTICASON0.05 MG/AC NS (18:29)
[2017-12-06] MEDS ORDERED: GAVISCON 95 MG360 ML PO (18:30)
[2017-12-06] MEDS ORDERED: LATANOPROST 2.2.5 ML OU (18:31)
[2017-12-06] MEDS ORDERED: LOSARTAN POTASS25 MG PO (18:31)
[2017-12-06] MEDS ORDERED: PREDNISONE10 MG PO (18:32)
[2017-12-06 18:36] LABS: PROTHROMBIN TIME 18.7 SECONDS (9.0-12.0)
[2017-12-06 19:36] LABS: URINE APPEARANCE HAZY; URINE COLOR YELLOW
[2017-12-06 19:37] LABS: URINE BILIRUBIN NEGATIVE (NEGATIVE); URINE BLOOD TRACE (NEGATIVE); URINE GLUCOSE NEGATIVE (NEGATIVE); URINE KETONE NEGATIVE (NEGATIVE); URINE LEUKOCYTE ESTERASE 2+ (NEGATIVE); URINE NITRATE NEGATIVE (NEGATIVE); URINE PROTEIN(semi-quant) TRACE mg/dL (NEGATIVE); URINE UROBILINOGEN NORMAL (NORMAL); URINE WBC >50 /hpf (0-3)
[2017-12-06 22:12] VITALS: BP 159/77
== END 2017-12-06 22:12 | disposition short-term general hospital (02) ==
LOC: ED 17:04
PROVIDERS: Nurse Practitioner
DX: N36.0 Urethral fistula (principal); K63.2 Fistula of intestine; I10 Essential (primary) hypertension; J44.9 Chronic obstructive pulmonary disease, unspecified; Z86.718 Personal history of other venous thrombosis and embolism; Z79.01 Long term (current) use of anticoagulants; Z85.118 Personal history of other malignant neoplasm of bronchus and lung; Z85.038 Personal history of other malignant neoplasm of large intestine; Z85.46 Personal history of malignant neoplasm of prostate; Z93.50 Unspecified cystostomy status; Z93.3 Colostomy status; Z87.891 Personal history of nicotine dependence
CPT/HCPCS: J2405; J3010; Q9967

== ENCOUNTER 2017-12-08 09:30 | Outpatient (RCR) | payer MEDICARE, BC ==
[~2017-12-08 09:30] MED LIST changes: +ALPHAGAN P 5 ML5 M1 OS; +BACLOFEN5 MG PO; +FLUTICASON0.05 MG/AC NS; +GAVISCON 95 MG360 ML PO; +LATANOPROST 2.2.5 ML OU; +LOSARTAN POTASS25 MG PO
== END 2017-12-08 10:00 | disposition home or self-care (01) ==
LOC: PT 09:30
DX: M54.5 Low back pain (principal)